=== PATIENT | female | born 1980 | race African-American/Black ===

== ENCOUNTER 2021-05-23 07:30 | Inpatient (IN) | payer BC ==
[2021-05-23] MEDS: ELECTROLYTE-148 SOLN 1,000 ML IV SCH ×2 (08:30→14:00)
[2021-05-23 09:13] LABS: BASO % 0.8 % (0-2.0); EOS % 0.5 % (0-4.5); HEMATOCRIT 30.5 % (32.4-45.2); HEMOGLOBIN 10.1 GM/dL (10.7-15.3); LYMPH % 27.1 % (8-40); MCH 26.4 pg (25.7-33.7); MCHC 33.2 g/dl (32.0-36.0); MEAN CELL VOLUME 79.8 fl (80-96); MEAN PLT VOLUME 7.7 fl (7.5-11.1); MONO % 7.2 % (3.8-10.2); NEUT % 64.4 % (42.8-82.8); PLATELET COUNT 282 10^3/uL (134-434); RBC 3.82 M/mm3 (3.60-5.2); RDW 15.9 % (11.6-15.6); WHITE BLOOD COUNT 4.3 K/mm3 (4.0-10.0)
[2021-05-23 09:20] LABS: INR 0.95 (0.83-1.09); PROTHROMBIN TIME (PATIENT) 10.9 SEC (9.7-13.0)
[2021-05-23 09:23] LABS: ACTIVATED PTT 27.2 SECONDS (25.2-36.5)
[2021-05-23 09:43] LABS: CALCIUM 8.5 mg/dL (8.5-10.1)
[2021-05-23 09:44] LABS: BLOOD UREA NITROGEN 8.7 mg/dL (7-18)
[2021-05-23] MEDS ORDERED: OXYTOCIN 30 UNITS in 0.9% NS 30 UNIT/500 ML INFUS.BAG IVPB ONE (09:45)
[2021-05-23] MEDS ORDERED: AMPICILLIN SODIUM 2 GM VIAL ONE (09:45)
[2021-05-23 09:47] LABS: CREATININE 0.7 mg/dL (0.55-1.3)
[2021-05-23] MEDS ORDERED: AMPICILLIN - 2 GM in SODIUM CHLORIDE 100 ML IVPB ONE ×2 (09:49→09:54)
[2021-05-23] MEDS ORDERED: BUTORPHANOL TARTRATE 1 MG/ML VIAL IVPB ONE (09:50)
[2021-05-23] MEDS ORDERED: PROMETHAZINE HCL 25 MG/1 ML VIAL IVPUSH ONE (09:50)
[2021-05-23] MEDS: OXYTOCIN 30 UNITS in 0.9% NS 30 UNIT/500 ML INFUS.BAG IVPB SCH (10:00)
[2021-05-23 10:04] VITALS: BMI 45.1
[2021-05-23] MEDS ORDERED: AMPICILLIN SODIUM 1 GM VIAL ONE ×3 (13:53→22:05)
[2021-05-23] MEDS: AMPICILLIN - 1 GM in SODIUM CHLORIDE 100 ML IVPB SCH ×3 (14:00→22:00)
[2021-05-23] MEDS ORDERED: FENTANYL/BUPIVACAINE/NS/PF - PCEA - 50 ML DISP.SYRIN EP ONE ×2 (15:49→19:42)
[2021-05-23] MEDS ORDERED: BUPIVACAINE HCL/PF 0.25% (2.5MG/ML) 10 ML VIAL ONE (16:07)
[2021-05-23] MEDS: FENTANYL/BUPIVACAINE/NS/PF - PCEA - 50 ML DISP.SYRIN EP SCH ×2 (16:20→19:45)
[2021-05-23] MEDS ORDERED: NALOXONE HCL 0.4 MG/ML VIAL IVPUSH PRN (16:35)
[2021-05-23] MEDS ORDERED: OXYTOCIN 20 UNITS in 0.9% NS 20 UNIT/1,000 ML INFUS.BAG IV ONE (21:57)
[2021-05-23] MEDS ORDERED: ACETAMINOPHEN 325 MG TABLET (FP) PO PRN (23:02)
[2021-05-23] MEDS ORDERED: METHYLERGONOVINE MALEATE 0.2 MG/1 ML AMP IM PRN (23:02)
[2021-05-23] MEDS ORDERED: BENZOCAINE 20% 57 GM BOTTLE TP PRN (23:02)
[2021-05-23] MEDS ORDERED: oxyCODONE HCL 5 MG TABLET PO PRN (23:02)
[2021-05-23] MEDS ORDERED: BENZOCAINE 28 GM HEMORRHOIDAL OINTMENT TP PRN (23:02)
[2021-05-23] MEDS ORDERED: BISACODYL 10 MG SUPP.RECT RC PRN (23:02)
[2021-05-23] MEDS ORDERED: OXYTOCIN 20 UNITS in 0.9% NS 20 UNIT/1,000 ML INFUS.BAG IV SCH (23:15)
[2021-05-24] MEDS: IBUPROFEN 600 MG TABLET (FP) PO PRN ×5 (02:29→22:47)
[2021-05-24] MEDS: AMPICILLIN - 1 GM in SODIUM CHLORIDE 100 ML IVPB SCH (03:04)
[2021-05-24] MEDS: WITCH HAZEL 50% (TUCKS) 40 PAD/JAR PAD TP PRN ×2 (03:05→21:11)
[2021-05-24 07:39] LABS: BASO % 0.3 % (0-2.0); EOS % 0.2 % (0-4.5); HEMATOCRIT 32.6 % (32.4-45.2); HEMOGLOBIN 10.5 GM/dL (10.7-15.3); LYMPH % 9.9 % (8-40); MCH 26.2 pg (25.7-33.7); MCHC 32.4 g/dl (32.0-36.0); MEAN CELL VOLUME 80.8 fl (80-96); MEAN PLT VOLUME 8.2 fl (7.5-11.1); MONO % 5.4 % (3.8-10.2); NEUT % 84.2 % (42.8-82.8); PLATELET COUNT 275 10^3/uL (134-434); RBC 4.03 M/mm3 (3.60-5.2); RDW 16.2 % (11.6-15.6); WHITE BLOOD COUNT 9.3 K/mm3 (4.0-10.0)
[2021-05-24] MEDS: PRENATAL VITAMINS W/ FOLIC ACID TABLET (FP) PO SCH (09:03)
[2021-05-24] MEDS: ELECTROLYTE-148 SOLN 1,000 ML IV SCH (20:36)
[2021-05-24] MEDS: OXYTOCIN 30 UNITS in 0.9% NS 30 UNIT/500 ML INFUS.BAG IVPB SCH (20:36)
[2021-05-24] MEDS: FENTANYL/BUPIVACAINE/NS/PF - PCEA - 50 ML DISP.SYRIN EP SCH (20:37)
[2021-05-24] MEDS ORDERED: SENNOSIDES/DOCUSATE COMBO (SENNA PLUS) TABLET (UD) PO PRN (22:00)
[2021-05-24 23:37] VITALS: PULSE 73
[2021-05-25] MEDS: IBUPROFEN 600 MG TABLET (FP) PO PRN (07:35)
[2021-05-25] MEDS: PRENATAL VITAMINS W/ FOLIC ACID TABLET (FP) PO SCH (09:39)
[2021-05-25 10:38] VITALS: BP 128/78; TEMP 98.1
== END 2021-05-25 13:25 | disposition home or self-care (01) | DRG 807 ==
LOC: JLDR 07:30 → J3W 05-24 02:56
PROVIDERS: ADMIT Obstetrics & Gynecology; ATTEND Obstetrics & Gynecology
PROC: 0HQ9XZZ Repair Perineum Skin, External Approach (ICD-10-PCS; principal; 2021-05-23)
PROC: 10E0XZZ Delivery of Products of Conception, External Approach (ICD-10-PCS; 2021-05-23)
DX: O48.0 Post-term pregnancy (principal); O70.0 First degree perineal laceration during delivery; Z37.0 Single live birth; Z3A.41 41 weeks gestation of pregnancy
CPT/HCPCS: 36415; 59409; 80048; 85025; 85610; 85730; 86780; 86850; 86900; 86901; C9803-CS; U0003; U0005